=== PATIENT | female | born 1990 | race African-American/Black ===

== ENCOUNTER 2017-09-28 12:55 | Emergency (ER) | payer OTHER ==
[2017-09-28 13:21] VITALS: BP 123/73; PULSE 98; TEMP 98; BMI 26.5
[2017-09-28] MEDS ORDERED: KETOROLAC TROMETHAMINE 30 MG/1 ML VIAL IVPUSH ONE (13:38)
[2017-09-28] MEDS ORDERED: SODIUM CHLORIDE 0.9% 500 ML INFUS.BAG IV ONE (13:38)
[2017-09-28] MEDS ORDERED: METOCLOPRAMIDE HCL INJECTION 10 MG/2 ML VIAL IVPUSH ONE (13:39)
[2017-09-28] MEDS ORDERED: KETOROLAC TROMETHAMINE 30 MG/1 ML VIAL ONE (13:42)
[2017-09-28] MEDS ORDERED: METOCLOPRAMIDE HCL INJECTION 10 MG/2 ML VIAL ONE (13:42)
--- NOTE | 2017-09-28 14:31 | PDOC ---
History of Present Illness - General Chief Complaint: Headache Stated Complaint: HEADACHES, DIZZINESS Time Seen by Provider: 09/28/17 13:09 - History of Present Illness Initial Comments: 09/28/17 13:40 CHIEF COMPLAINT: headache HISTORY OF PRESENT ILLNESS: 27 yo F with no PMH presents to [facility] with headache x 1 week. Patient reports that she has had a lot of stress lately "fighting with my child's father", as well as finding out that she had gonorrhea recently and not knowing how she contracted it. She also reports that "I haven't really drank enough water, I know that, and I try but I'm definitely not having as much as I should." She denies any dizziness, blurry vision, N/V, weakness, or any other symptoms. She reports having similar symptoms "a while back before I went to college." She states that she does notice headache is worse when she is driving "like in the sun or something." No recent travel or sick contacts. PAST MEDICAL HISTORY: Denies past medical history FAMILY HISTORY: Denies SOCIAL HISTORY: Denies tobacco, alcohol, illicit drug use. SURGICAL HISTORY: Denies ALLERGIES: No known drug allergies REVIEW OF SYSTEMS General/Constitutional: Denies fever or chills. Denies weakness, weight change. HEENT: Denies change in vision. Denies ear pain or discharge. Denies sore throat. Cardiovascular: Denies chest pain or shortness of breath. Respiratory: Denies cough, wheezing, or hemoptysis. Gastrointestinal: Denies nausea, vomiting, diarrhea or constipation. Denies rectal bleeding. Genitourinary: Denies dysuria, frequency, or change in urination. Musculoskeletal: Denies joint or muscle swelling or pain. Denies neck or back pain. Skin and breasts: Denies rash or easy bruising. Neurologic: Headache x a week. Denies vertigo, loss of consciousness, or loss of sensation. PHYSICAL EXAM General Appearance: Well-appearing, appropriately dressed. No apparent distressn. HEENT: Mild photophobia. EOMI, PERRLA, normal ENT inspection, normal voice, TMs normal, pharynx normal. No conjunctival pallor. No photophobia, scleral icterus. Respiratory/Chest: Lungs CTAB. Cardiovascular: RRR. S1, S2. Gastrointestinal/Abdominal: Normal bowel sounds. Abdomen soft, non-distended. No tenderness or rebound tenderness. No organomegaly, pulsatile mass, guarding , hernia, hepatomegaly, splenomegaly. Musculoskeletal/Extremities: Normal inspection. FROM of all extremities, normal capillary refill. Pelvis Stable. No CVA tenderness. No tenderness to extremities, pedal edema, swelling, erythema or deformity. Integumentary: Appropriate color, dry, warm. No cyanosis, erythema, jaundice or rash Neurologic: sales account director II-XII intact. Fully oriented, alert. Appropriate mood/affect. Motor strength 5/5. No appreciable EOM palsy, facial droop or sensory deficit. Past History - Past Medical History Allergies/Adverse Reactions: Allergies Allergy/AdvReac Type Severity Reaction Status Date / Time banana Allergy Verified 09/28/17 13:09 Home Medications: Ambulatory Orders Aspirin/Acetaminophen/Caffeine [Excedrin Extra Strength Caplet] 1 each PO TID PRN #21 tablet 09/28/17 Asthma: Yes COPD: No Other medical history: Migraines - Suicide/Smoking/Psychosocial Hx Smoking History: Current some day smoker Have you smoked in the past 12 months: Yes Number of Cigarettes Smoked Daily: 5 Information on smoking cessation initiated: Yes 'Breaking Loose' booklet given: 09/28/17 Hx Alcohol Use: No Drug/Substance Use Hx: No Substance Use Type: None *Physical Exam - Vital Signs Last Vital Signs Temp Pulse Resp BP Pulse Ox 98 F 98 H 20 123/73 99 09/28/17 13:03 09/28/17 13:03 09/28/17 13:03 09/28/17 13:03 09/28/17 13:03 ED Treatment Course - ADDITIONAL ORDERS Additional order review: Laboratory Results 09/28/17 13:15 Urine HCG, Qual Negative Medical Decision Making - Medical Decision Making 09/28/17 14:31 27 yo F with no PMH presents to [facility] with headache x 1 week. Clinical presentation consistent with tension/migraine headache. -Toradol, reglan, benadryl, fluids *DC/Admit/Observation/Transfer Diagnosis at time of Disposition: Tension headache - Discharge Dispostion Disposition: HOME Condition at time of disposition: Stable Admit: No - Prescriptions Prescriptions: Aspirin/Acetaminophen/Caffeine [Excedrin Extra Strength Caplet] 1 each PO TID PRN #21 tablet PRN Reason: Headache - Referrals Referrals: Fco Abreu MD [Staff Physician] - - Patient Instructions Printed Discharge Instructions: DI for Hormonal and Tension Headaches Additional Instructions: Please take medications as prescribed. If your symptoms persist past 1 week, please follow up with neurology for further evaluation. If you develop any blurry vision, vomiting, weakness, slurred speech, loss of memory, or any new or worsening symptoms, please return to the ER. - Post Discharge Activity
== END 2017-09-28 15:09 | disposition home or self-care (01) ==
LOC: JERFT 12:55
DX: G44.209 Tension-type headache, unspecified, not intractable (principal); F17.210 Nicotine dependence, cigarettes, uncomplicated; Z87.09 Personal history of other diseases of the respiratory system
CPT/HCPCS: 84703; 99281-25